=== PATIENT | female | born 1970 | race Caucasian/White ===

== ENCOUNTER 2018-12-01 07:16 | Outpatient (CLI) | payer BC ==
[2018-12-01 08:23] LABS: Hemoglobin 14.7 g/dL (12.0-16.0); Mean Corpuscular HGB CONC 33.8 g/dL (32.0-36.0); Mean Corpuscular Hemoglobin 30.6 pg (27.0-31.0); Mean Corpuscular Volume 90.4 fL (78.0-98.0); Mean Platelet Volume 6.3 fL (7.4-10.4); Platelet Count 249 thou/uL (130-400); RBC Distribution Width 12.1 % (11.5-14.5); White Blood Cell (WBC) Count 5.3 thou/uL (4.8-10.8)
[2018-12-01 08:49] LABS: ALT (SGPT) 24 U/L (8-55); AST (SGOT) 17 U/L (5-34); Albumin 4.3 g/dL (3.5-5.0); Alkaline Phosphatase 62 U/L (40-150); Anion Gap 10 mmol/L (10-20); BUN (Urea Nitrogen) 11 mg/dL (7.0-18.7); Bilirubin, Direct 0.1 mg/dL (0.1-0.3); Bilirubin, Total 0.3 mg/dL (0.2-1.2); Calc. Creatinine Clearance 0 mL/min (70-130); Calcium 9.3 mg/dL (7.8-10.44); Carbon Dioxide 27 mmol/L (22-29); Chloride 106 mmol/L (98-107); Estimated GFR-MDRD 71; Glucose 102 mg/dL (70-105); Potassium 4.4 mmol/L (3.5-5.1); Protein, Total 6.9 g/dL (6.0-8.3); Sodium 139 mmol/L (136-145)
--- NOTE | 2018-12-01 10:31 | ULT ---
ULTRASOUND ABDOMEN COMPLETE: INDICATION: Abdominal pain. TECHNIQUE: Cuadra-scale ultrasound evaluation of the liver, gallbladder, spleen, pancreas, common bile duct, kidne ys, abdominal aorta, and inferior vena cava (IVC). FINDINGS: There is no focal hepatic lesion. Spleen is unremarkable. Foci of nondependent, increased echogenicit y, reported as immobile by the business services clerk during the exam present, at least two of which are discret robert visualized, measuring up to approximately 1.2 cm. This may be related to gallbladder polyp format ion versus areas of tumefactive sludge or adherent nonshadowing cholelithiasis. No pericholecystic in flammation. Borderline size gallbladder wall at 3 mm. Common duct measures 6 mm, mildly prominent. No acute abnormality of either kidney is seen. The imaged aorta and IVC reveal no acute abnormalities. IMPRESSION: Findings which favor gallbladder polyp formation, with additional considerations as discussed above. No acute gallbladder pathology is otherwise identified. Surgical consultation may prove useful for fu rther evaluation. POS: [facility]
== END 2018-12-01 07:17 | disposition home or self-care (01) ==
LOC: ULT 07:16
PROVIDERS: ATTEND Family Medicine
DX: R10.9 Unspecified abdominal pain (principal); R14.0 Abdominal distension (gaseous); R19.5 Other fecal abnormalities
CPT/HCPCS: 36415; 76700; 80048; 80076; 85027